=== PATIENT | female | born 1985 | race Caucasian/White ===

== ENCOUNTER → 2020-11-20 13:51 | Outpatient (BNVA) | payer SELFPAY | PROVIDERS: PCP Nurse Practitioner Family; Visit Provider Specialist | DX: F44.4 Conversion disorder with motor symptom or deficit (principal); G43.711 Chronic migraine without aura, intractable, with status migrainosus; F32.9 Major depressive disorder, single episode, unspecified | CPT/HCPCS: 99205 ==